=== PATIENT | female | born 1980 | race Caucasian/White ===

== ENCOUNTER 2022-11-19 15:19 | Emergency (ER) | payer OTHER, SELFPAY ==
[2022-11-19 15:26] VITALS: BP 110/73; PULSE 73; RESP 14; TEMP 36.9; O2SAT 100
--- NOTE | 2022-11-19 15:41 | ED.URI ---
HPI - URI/Sore Throat General Chief Complaint: Upper Respiratory Infection Stated Complaint: sore throat Time Seen by Provider: 11/19/22 15:44 History of Present Illness HPI Narrative: Patient presents with sore throat generalized body aches symptoms have been going on since for the past 3 days. Patient states she is normally healthy individual no known exposures. Related Data Home Medications Medication Instructions Recorded Confirmed cetirizine 10 mg capsule (Zyrtec) 10 mg PO DAILY PRN 11/04/19 multivitamin 1 tablet PO DAILY 11/04/19 norgestimate 0.25 mg-ethinyl 1 tablet PO DAILY 11/04/19 estradiol 35 mcg tablet (Sprintec (28)) Allergies Allergy/AdvReac Type Severity Reaction Status Date / Time levofloxacin Allergy Mild Unknown Verified 01/14/20 10:34 Penicillins Allergy Mild Unknown Verified 01/14/20 10:34 Review of Systems Review of Systems: CONSTITUTIONAL: Denies chills, or sweats. Reports fever and generalized body aches EYES: Denies visual changes, redness, or discharge. ENT: Denies otalgia. Reports nasal congestion runny nose and sore throat CARDIOVASCULAR: Denies chest pain, palpitations, or edema. RESPIRATORY: Denies dyspnea. Reports occasional cough GASTROINTESTINAL: Denies abdominal pain, nausea, vomiting, or diarrhea. GENITOURINARY: Denies dysuria or hematuria. SKIN: Denies rash or itching. MUSCULOSKELETAL: Denies back pain, joint pain, or myalgia. Reports generalized body aches NEUROLOGIC: Denies headache, numbness, or weakness. PSYCHIATRIC: Denies anxiety or depression. [facility] Past Medical History Medical History (Updated 11/19/22 @ 15:42 by MARCO A Allen) Environmental allergies Nephrolithiasis 10/2013 Subclinical hyperthyroidism Thyroid nodule Surgical History Surgical History (System 01/14/20 @ 10:34 by Krista Mcgrath) History of cholecystectomy 05/2015 History of hernia surgery bilateral - age as an [place] teeth extracted Family History Family History (System 01/14/20 @ 10:34 by Krista Mcgrath) Mother History of thyroidectomy Other Diabetes mellitus Family history of thyroid disease Social History Social History (System 01/14/20 @ 10:34 by Krista Mcgrath) Smoking status: Never smoker Second hand tobacco smoke exposure: No Alcohol intake: current Alcohol use details: consumes 1 beer monthly Substance use: never Substance use type: does not use Gender identity (if verbalized by the patient): Female Comments At time of signature, agree with nursing past medical, surgical, social and family history. There is no relevant family history pertinent to the presenting complaint Exam Narrative: The patient is a well-developed, well-nourished in no acute distress. SKIN: Skin is warm and dry without erythema, swelling or exudate. There is good turgor. No tenting. HEAD: Atraumatic. Normocephalic. No temporal or scalp tenderness. EYES: Moist and bright. Sclera and conjunctivae normal. No discharge. PERRLA. Extraocular motions intact. Gross visual acuity intact. EARS: Pinna is normal shape and contour. Clear external auditory canals. TM pearly james with good cone of light, no erythema or suppuration. Bilateral cerumen noted no gross hearing deficit. NOSE: pink, moist mucosa with good air movement. Clear rhinorrhea without nasal flaring. Septum midline. Mouth: moist mucous membranes. THROAT; mild erythema noted to posterior oropharynx with moderate postnasal drainage. Without exudate or ulceration.. Uvula midline. Normal movement of soft palate. NECK: Supple and nontender with full range of motion without discomfort. No meningeal signs. LUNGS: Equal and bilateral breath sounds without wheezes, rales or rhonchi. CHEST: The chest wall is without retractions or use of accessory muscles. HEART: Has a regular rate and rhythm without murmur, gallops, click or rub. ABDOMEN: Soft, nontender with positive active bowel
== END 2022-11-19 15:46 | disposition home or self-care (01) ==
PROVIDERS: Emergency Provider Nurse Practitioner Family; PCP Physician Assistant
DX: J06.9 Acute upper respiratory infection, unspecified (principal)
CPT/HCPCS: 87081; 87880; 99213; G0463

== ENCOUNTER 2023-11-15 09:05 | Outpatient (CLI) | payer OTHER, SELFPAY ==
--- NOTE | ~2023-11-15 | CT_ITS ---
CT of the Abdomen and Pelvis: Indication: Nausea and vomiting Technique: 2.5 mm axial scans were obtained through the abdomen and pelvis following intravenous adm inistration of 100 cc of Omnipaque 350. Dose reduction technique was used on this scan by utilizing a utomated exposure control and iterative reconstruction technique. The dose-length product (DLP) was 5 64.73 mGy-cm. Findings: Scans through the lung bases are unremarkable. Small hepatic cyst present. Gallbladder absent. The spleen, pancreas, adrenals and kidneys are within normal limits. No evidence of aortic aneurysm. No lymphadenopathy. Questionable mild wall thickening gastric antrum. No bowel obstruction. No abscess or free air. Images through the pelvis were performed. Urinary bladder unremarkable. No adnexal mass seen. No asci hossein. Impression: Questionable mild wall thickening gastric antrum. Correlate for gastritis. Reviewed, dictated and finalized at [facility]. Impression: Questionable mild wall thickening gastric antrum. Correlate for gastritis.
== END 2023-11-15 09:06 ==
LOC: MICIMG 09:07
PROVIDERS: PCP Nurse Practitioner; Visit Provider Nurse Practitioner
DX: R11.2 Nausea with vomiting, unspecified (principal); R10.11 Right upper quadrant pain; K31.89 Other diseases of stomach and duodenum
CPT/HCPCS: 74177; Q9967